=== PATIENT | male | born 1990 | race Caucasian/White ===

== ENCOUNTER 2018-03-13 21:25 | Emergency (ER) | payer MEDICAID ==
[2018-03-13 21:54] LABS: BILIRUBIN,URINE NEGATIVE (NEGATIVE); GLUCOSE, URINE (UA) NEGATIVE (NEGATIVE); KETONES,URINE (UA) NEGATIVE (NEGATIVE); LEUKOCYTE ESTERASE, URINE TRACE (NEGATIVE); NITRITE,URINE NEGATIVE (NEGATIVE); OCCULT BLOOD,URINE LARGE (NEGATIVE); PH,URINE 6.5 PH (5.0-7.5); PROTEIN,URINE NEGATIVE (NEGATIVE); UROBILINOGEN,URINE 0.2 (NORMAL) E.U./dL (NORMAL)
[2018-03-13 21:57] LABS: CLARITY,URINE HAZY (CLEAR)
--- NOTE | 2018-03-13 22:00 | ED Physician Documentation ---
PD HPI MALE - Stated complaint Stated Complaint: MALE - Chief complaint Chief Complaint: UTI - History obtained from History obtained from: Patient - History of Present Illness Timing - onset: Today Timing - duration: Days (1) Timing - details: Gradual onset Pain level max: 3 Pain level now: 3 Associated symptoms: Dysuria, Urinary frequency, Other (states small worm like objects in his urine today.) PD HPI MALE CONTRIB FACTORS: Not sexually active, Other (no urethral insertions.). No: Exposed to STD Similar symptoms before: Has not had sx before Recently seen: Not recently seen Review of Systems Constitutional: denies: Fever, Chills Throat: denies: Sore throat Cardiac: denies: Chest pain / pressure Respiratory: denies: Cough GI: denies: Abdominal Pain, Vomiting, Diarrhea : reports: Dysuria, Frequency, Hesitancy Skin: denies: Rash Neurologic: denies: Focal weakness, Numbness, Headache PD PAST MEDICAL HISTORY - Past Medical History Past Medical History: No - Past Surgical History Past Surgical History: No - Present Medications Home Medications: Ambulatory Orders Medication Instructions Recorded Confirmed Cephalexin [Keflex] 500 mg PO Q6H #28 capsule 03/13/18 - Allergies Allergies/Adverse Reactions: Allergies Allergy/AdvReac Type Severity Reaction Status Date / Time shellfish derived Allergy Anaphylaxis Verified 03/13/18 21:37 tuberculin,PPD,multi-puncture AdvReac Rash Verified 03/13/18 21:37 - Living Situation Living Situation: reports: With family Living Arrangement: reports: At home - Social History Does the pt smoke?: No Does the pt have substance abuse?: No - Family History Family history: reports: Non contributory PD ED PE NORMAL - Vitals Vital signs reviewed: Yes - General General: Alert and oriented X 3, No acute distress - HEENT HEENT: Moist mucous membranes, Pharynx benign (tonsil stones present) - Neck Neck: Supple, no meningeal sign - Cardiac Cardiac: RRR, Strong equal pulses - Respiratory Respiratory: No respiratory distress, Clear bilaterally - Abdomen Abdomen: Soft, Non tender, Non distended - Male Male : Other (normal external exam.) - Back Back: No CVA TTP - Derm Derm: Warm and dry - Extremities Extremities: No edema - Neuro Neuro: Alert and oriented X 3 Results - Vitals Vitals: Vital Signs - 24 hr 03/13/18 03/13/18 21:31 22:25 Temperature 37.1 C 36.3 C L Heart Rate 92 87 Respiratory 18 19 Rate Blood Pressure 162/112 H 154/89 H O2 Saturation 100 99 Oxygen O2 Source Room air - Labs Labs: Laboratory Tests 03/13/18 21:45 Urine Color YELLOW Urine Clarity HAZY Urine pH 6.5 Ur Specific [place] <=1.005 Urine Protein NEGATIVE Urine Glucose (UA) NEGATIVE Urine Ketones NEGATIVE Urine Occult Blood LARGE H Urine Nitrite NEGATIVE Urine Bilirubin NEGATIVE Urine Urobilinogen 0.2 (NORMAL) Ur Leukocyte Esterase TRACE H Urine RBC 0-5 Urine WBC 0-3 Ur Squamous Epith Cells MOD Squamous H Urine Bacteria None Seen Ur Microscopic Review INDICATED Urine Culture Comments NOT INDICATED PD MEDICAL DECISION MAKING - ED course Complexity details: reviewed results, re-evaluated patient, considered differential, d/w patient ED course: Patient is a 27-year-old male who presents to the emergency department with symptoms of a UTI. He is not sexually active. Does have + leukocyte esterase, given his symptoms will place on antibiotics and see how he progresses. Appears to have small amounts of mucus in the urine grossly. We will have him follow-up with his doctor for further care. There do not appear to be any worms or parasites. Patient counseled regarding signs and symptoms for which I believe and urgent re-evaluation would be necessary. Patient with good understanding of and agreement to plan and is comfortable going home at this time This document was made in part using voice recognition software. While efforts are made to proofread this document, sound alike and grammatical errors may occur. - Sepsis Event Vital Signs: Vital Signs - 24 hr 03/13/18 03/13/18 21:31 22:25 Temperature 37.1 C 36.3 C L Heart Rate 92 87 Respiratory 18 19 Rate Blood Pressure 162/112 H 154/89 H O2 Saturation 100 99 Oxygen O2 Source Room air Departure - Departure Disposition: Home, Self Care Clinical Impression: UTI (urinary tract infection) Qualifiers: Urinary tract infection type: acute cystitis Hematuria presence: with hematuria Qualified Code(s): N30.01 - Acute cystitis with hematuria Condition: Good Instructions: ED UTI Cystitis Male Follow-Up: your,doctor in 1 week [Other] Prescriptions: Cephalexin [Keflex] 500 mg PO Q6H #28 capsule Comments: Return if you worsen. Take all antibiotics until gone. Discharge Date/Time: 03/13/18 22:26
[2018-03-13 22:02] LABS: BACTERIA,URINE None Seen /HPF (None Seen); RBC,URINE 0-5 /HPF (0-5); SQUAMOUS EPITHELIAL CELL,UR MOD Squamous (<= Few)
[2018-03-13] MEDS ORDERED: cephALEXin 250 MG CAPSULE PO STA (22:14)
[2018-03-13 22:26] VITALS: BP 154/89
== END 2018-03-13 22:26 | disposition home or self-care (01) ==
LOC: ED 21:25
DX: N30.01 Acute cystitis with hematuria (principal)
CPT/HCPCS: 81001; 99283; A9270; 81003; 87086; 87491; 87591

== ENCOUNTER 2018-03-21 19:49 | Emergency (ER) | payer MEDICAID ==
[2018-03-21 20:41] LABS: BILIRUBIN,URINE NEGATIVE (NEGATIVE); GLUCOSE, URINE (UA) NEGATIVE (NEGATIVE); KETONES,URINE (UA) NEGATIVE (NEGATIVE); LEUKOCYTE ESTERASE, URINE NEGATIVE (NEGATIVE); NITRITE,URINE NEGATIVE (NEGATIVE); OCCULT BLOOD,URINE NEGATIVE (NEGATIVE); PH,URINE 6.5 PH (5.0-7.5); PROTEIN,URINE NEGATIVE (NEGATIVE); UROBILINOGEN,URINE 0.2 (NORMAL) E.U./dL (NORMAL)
[2018-03-21 20:45] LABS: CLARITY,URINE CLEAR (CLEAR)
[2018-03-21] MEDS ORDERED: PHENAZOPYRIDINE 100 MG TABLET PO STA (23:50)
--- NOTE | 2018-03-21 23:50 | ED Physician Documentation ---
PD HPI FEMALE - Stated complaint Stated Complaint: MALE /W PX - Chief complaint Chief Complaint: Abd Pain - History obtained from History obtained from: Patient PD PAST MEDICAL HISTORY - Past Medical History Past Medical History: No - Past Surgical History Past Surgical History: No - Present Medications Home Medications: Ambulatory Orders Medication Instructions Recorded Confirmed Cephalexin [Keflex] 500 mg PO QID 03/21/18 03/21/18 Phenazopyridine HCl [Pyridium] 200 mg PO TID PRN #6 tablet 03/21/18 - Allergies Allergies/Adverse Reactions: Allergies Allergy/AdvReac Type Severity Reaction Status Date / Time shellfish derived Allergy Anaphylaxis Verified 03/21/18 20:06 tuberculin,PPD,multi-puncture AdvReac Rash Verified 03/21/18 20:06 - Social History Does the pt smoke?: No Smoking Status: Never smoker Does the pt drink ETOH?: No Does the pt have substance abuse?: No - Immunizations Immunizations are current?: Yes - POLST Patient has POLST: No Results - Vitals Vitals: Vital Signs - 24 hr 03/21/18 20:03 Temperature 37.2 C Heart Rate 105 H Respiratory 16 Rate Blood Pressure 143/91 H O2 Saturation 97 Oxygen O2 Source Room air - Labs Labs: Laboratory Tests 03/21/18 19:58 Urine Color YELLOW Urine Clarity CLEAR Urine pH 6.5 Ur Specific [place] <=1.005 Urine Protein NEGATIVE Urine Glucose (UA) NEGATIVE Urine Ketones NEGATIVE Urine Occult Blood NEGATIVE Urine Nitrite NEGATIVE Urine Bilirubin NEGATIVE Urine Urobilinogen 0.2 (NORMAL) Ur Leukocyte Esterase NEGATIVE Ur Microscopic Review NOT INDICATED Urine Culture Comments NOT INDICATED PD MEDICAL DECISION MAKING - Sepsis Event Vital Signs: Vital Signs - 24 hr 03/21/18 20:03 Temperature 37.2 C Heart Rate 105 H Respiratory 16 Rate Blood Pressure 143/91 H O2 Saturation 97 Oxygen O2 Source Room air Departure - Departure Disposition: 01 Home, Self Care Clinical Impression: Dysuria Condition: Good Instructions: ED Dysuria Uncertain Cause Follow-Up: primary,care provider [Other] Prescriptions: Phenazopyridine HCl [Pyridium] 200 mg PO TID PRN #6 tablet PRN Reason: dysuria Comments: Your diagnostic today were within normal limits. there were no abnormalities on your ultrasound or urinalysis. Your urine has been sent for cultures and other testing. You will be called if the tests come back positive. You may return to the emergency department at anytime for new, worsening and uncontrollable symptoms.
--- NOTE | 2018-03-21 23:56 | ED Physician Documentation ---
PD HPI MALE - Stated complaint Stated Complaint: MALE /W PX - Chief complaint Chief Complaint: Abd Pain - History obtained from History obtained from: Patient - History of Present Illness Timing - onset: How many weeks ago (2) Timing - details: Gradual onset, Still present Associated symptoms: Dysuria PD HPI MALE CONTRIB FACTORS: Not sexually active Similar symptoms before: Work up / diagnostics, Treatment Recently seen: Emergency Dept - Additional information Additional information: Patient is a 27 year old male who is presenting to the emergency department for dysuria. Patient's symptoms have been going on for the last two weeks or so. patient did a course of antibiotics but his symptoms have persisted. Patient states that he has some stringy discharge at times when he urinates. Patient states that he as not been sexually active for about 4 years. Patient denies any type of other instrumentation. Review of Systems Ten Systems: 10 systems reviewed and negative : reports: Dysuria, Discharge PD PAST MEDICAL HISTORY - Past Medical History Past Medical History: No - Past Surgical History Past Surgical History: No - Present Medications Home Medications: Ambulatory Orders Medication Instructions Recorded Confirmed Cephalexin [Keflex] 500 mg PO QID 03/21/18 03/21/18 Phenazopyridine HCl [Pyridium] 200 mg PO TID PRN #6 tablet 03/21/18 - Allergies Allergies/Adverse Reactions: Allergies Allergy/AdvReac Type Severity Reaction Status Date / Time shellfish derived Allergy Anaphylaxis Verified 03/21/18 20:06 tuberculin,PPD,multi-puncture AdvReac Rash Verified 03/21/18 20:06 - Social History Does the pt smoke?: No Smoking Status: Never smoker Does the pt drink ETOH?: No Does the pt have substance abuse?: No - Immunizations Immunizations are current?: Yes - POLST Patient has POLST: No PD ED PE NORMAL - Vitals Vital signs reviewed: Yes - General General: Alert and oriented X 3, No acute distress - HEENT HEENT: Atraumatic - Cardiac Cardiac: RRR - Abdomen Abdomen: Soft - Male Male : Pt declined - Derm Derm: Normal color, Warm and dry - Extremities Extremities: No deformity - Neuro Neuro: Alert and oriented X 3 Eye Opening: Spontaneous Results - Vitals Vitals: Vital Signs - 24 hr 03/21/18 20:03 Temperature 37.2 C Heart Rate 105 H Respiratory 16 Rate Blood Pressure 143/91 H O2 Saturation 97 Oxygen O2 Source Room air - Labs Labs: Laboratory Tests 03/21/18 19:58 Urine Color YELLOW Urine Clarity CLEAR Urine pH 6.5 Ur Specific [place] <=1.005 Urine Protein NEGATIVE Urine Glucose (UA) NEGATIVE Urine Ketones NEGATIVE Urine Occult Blood NEGATIVE Urine Nitrite NEGATIVE Urine Bilirubin NEGATIVE Urine Urobilinogen 0.2 (NORMAL) Ur Leukocyte Esterase NEGATIVE Ur Microscopic Review NOT INDICATED Urine Culture Comments NOT INDICATED - Rads (name of study) scrotal ultrasound Radiology: Final report received (normal) PD MEDICAL DECISION MAKING - ED course Complexity details: reviewed old records, reviewed results, re-evaluated patient , considered differential, d/w patient ED course: Patient was seen and examined at bedside. urine was collected and showed no acute abnormalities. ultrasound was ordered and was within normal limits. Patient was treated with pyridium. Cultures were sent. Patient required no further inpatient work up at this time and was stable for discharge with outpatient follow up. - Sepsis Event Vital Signs: Vital Signs - 24 hr 03/21/18 20:03 Temperature 37.2 C Heart Rate 105 H Respiratory 16 Rate Blood Pressure 143/91 H O2 Saturation 97 Oxygen O2 Source Room air Departure - Departure Disposition: 01 Home, Self Care Clinical Impression: Dysuria Condition: Good Instructions: ED Dysuria Uncertain Cause Follow-Up: primary,care provider [Other] Prescriptions: Phenazopyridine HCl [Pyridium] 200 mg PO TID PRN #6 tablet PRN Reason: dysuria Comments: Your diagnostic today were within normal limits. there were no abnormalities on your ultrasound or urinalysis. Your urine has been sent for cultures and other testing. You will be called if the tests come back positive. You may return to the emergency department at anytime for new, worsening and uncontrollable symptoms.
[2018-03-21 23:59] VITALS: BP 138/85
--- NOTE | 2018-03-22 00:13 | Ultrasound Report ---
Procedure Date: 03/21/2018 Accession Number: [id number] / [id number] Procedure: US - Testicle CPT Code: FULL RESULT: EXAM: SCROTAL ULTRASOUND EXAM DATE: 03/21/2018 11:36 PM. CLINICAL HISTORY: Scrotal pain. COMPARISON: None. TECHNIQUE: Real-time scanning was performed with static images obtained. Both color-flow and Doppler spectral analysis were utilized. FINDINGS: Right: Testis: 4.3 x 2.7 x 2.8 cm. Normal size and echotexture. No mass, calcification, or abnormal blood flow. Epididymis: Normal size and echotexture. No solid-appearing mass or abnormal blood flow. Incidental 4 mm cyst. Hydrocele: None. Varicocele: None. Left: Testis: 4.6 x 2.3 x 3.3 cm. Normal size and echotexture. No mass, calcification, or abnormal blood flow. Epididymis: Normal size and echotexture. No solid-appearing mass or abnormal blood flow. Incidental 4 mm cyst. Hydrocele: None. Varicocele: None. Other: None. IMPRESSION: Negative scrotal ultrasound. RADIA
== END 2018-03-22 00:02 | disposition home or self-care (01) ==
LOC: ED 19:49
DX: R30.0 Dysuria (principal)
CPT/HCPCS: 76870; 81003; 87086; 87491; 87591; 99283; A9270; 81001

== ENCOUNTER 2018-10-07 13:48 | Emergency (ER) | payer MEDICAID ==
[2018-10-07] MEDS ORDERED: IBUPROFEN 800 MG TABLET PO STA (15:29)
--- NOTE | 2018-10-07 15:32 | ED Physician Documentation ---
PD HPI URI - Stated complaint Stated Complaint: CONGESTION,COUGH - Chief complaint Chief Complaint: General - History obtained from History obtained from: Patient - History of Present Illness Timing duration: Days (6) Timing details: Still present Associated symptoms: Nasal congestion, Sinus pain, Productive cough - Treatment prior to arrival Treatment prior to arrival: pseudofed. - Additional information Additional information: The patient is a 28-year-old male who presents with congestion and sinus pain that started about 6-8 days ago. He also has had productive cough. He had fever 2 days ago and yesterday, but not today. He has mild headache, particularly with coughing. He denies sore throat, shortness of breath, or abdominal symptoms. He took Sudafed yesterday which did help his symptoms. He presents now because his employer insisted that he have a medical evaluation before allowing him to be at work. Review of Systems Constitutional: reports: Fever (yesterday) Eyes: denies: Discharge Ears: denies: Ear pain Nose: reports: Congestion, Sinus pressure / pain Throat: denies: Sore throat Cardiac: denies: Chest pain / pressure Respiratory: reports: Cough. denies: Dyspnea GI: denies: Abdominal Pain, Nausea, Vomiting : denies: Dysuria Skin: denies: Rash Musculoskeletal: denies: Neck pain, Extremity pain Neurologic: denies: Focal weakness, Numbness, Headache PD PAST MEDICAL HISTORY - Past Surgical History Past Surgical History: No - Present Medications Home Medications: Ambulatory Orders Medication Instructions Recorded Confirmed Cephalexin [Keflex] 500 mg PO QID 03/21/18 03/21/18 Phenazopyridine HCl [Pyridium] 200 mg PO TID PRN #6 tablet 03/21/18 Benzonatate [Tessalon Perle] 100 - 200 mg PO TID PRN #30 capsule 10/07/18 - Allergies Allergies/Adverse Reactions: Allergies Allergy/AdvReac Type Severity Reaction Status Date / Time shellfish derived Allergy Anaphylaxis Verified 10/07/18 13:54 tuberculin,PPD,multi-puncture AdvReac Rash Verified 10/07/18 13:54 - Social History Does the pt smoke?: No Smoking Status: Never smoker Does the pt drink ETOH?: No Does the pt have substance abuse?: No - Immunizations Immunizations are current?: Yes - POLST Patient has POLST: No PD ED PE NORMAL - Vitals Vital signs reviewed: Yes (Borderline hypertension initially.) - General General: Alert and oriented X 3, Well developed/nourished, Other (Nasal congestion) - HEENT HEENT: Atraumatic, Ears normal, Pharynx benign - Neck Neck: Supple, no meningeal sign, No adenopathy, No JVD - Cardiac Cardiac: RRR, No murmur - Respiratory Respiratory: Clear bilaterally - Abdomen Abdomen: Soft, Non tender - Back Back: No CVA TTP - Derm Derm: No rash - Extremities Extremities: No edema, No calf tenderness / cord - Neuro Neuro: Alert and oriented X 3, No motor deficit, Normal speech Results - Vitals Vitals: Vital Signs - 24 hr 10/07/18 13:54 Temperature 36.7 C Heart Rate 100 Respiratory 16 Rate Blood Pressure 130/87 H O2 Saturation 100 Oxygen O2 Source Room air PD MEDICAL DECISION MAKING - ED course Complexity details: considered differential, d/w patient ED course: The patient's presentation is most consistent with viral upper respiratory infection. His clinical presentation does not suggest meningitis, pneumonitis, otitis media, or acute pharyngitis. Treatment in the emergency department included administration of Ibuprophen 800 mg orally. I discussed with him the expected course of illness, symptomatic treatment and outpatient follow-up, as well as potentially worrisome signs or symptoms that should prompt reevaluation in the emergency department. Departure - Departure Disposition: 01 Home, Self Care Clinical Impression: Viral URI with cough Condition: Stable Instructions: ED URI Viral Follow-Up: [facility] [Provider Group] Prescriptions: Benzonatate [Tessalon Perle] 100 - 200 mg PO TID PRN #30 capsule PRN Reason: Cough Comments: Your symptoms are most consistent with a viral upper respiratory infection. Antibiotics are not clinically indicated for this type of viral infection. Treatment should be geared toward managing symptoms: Drink plenty of fluids. Use Tylenol or ibuprofen as needed for fever or discomfort. You can use Tessalon as prescribed if needed for cough. Wash your hands frequently, and cover your cough. Follow up with your primary physician, or return to the emergency department, if not improving within 1-2 weeks. Return to the emergency department if you develop increasing difficulty breathing, or otherwise worsening symptoms. Forms: Activity restrictions
[2018-10-07 16:05] VITALS: BP 128/88
== END 2018-10-07 16:04 | disposition home or self-care (01) ==
LOC: ED 13:48
DX: J06.9 Acute upper respiratory infection, unspecified (principal); B97.89 Other viral agents as the cause of diseases classified elsewhere
CPT/HCPCS: 99283; A9270

== ENCOUNTER 2018-11-01 11:10 | Emergency (ER) | payer MEDICAID ==
--- NOTE | 2018-11-01 12:31 | ED Physician Documentation ---
History of Present Illness - Stated complaint Stated Complaint: FLU SX - Chief complaint Chief Complaint: Heent - History obtained from History obtained from: Patient - Additonal information Additional information: Patient is a previously healthy 28-year-old male presenting with multiple complaints including mild nasal congestion, rhinorrhea, sore throat, dry cough without shortness of breath for the past several days. Patient also reports fever at home and lower abdominal pain without urinary changes, vomiting, or nausea. Patient does report decreased bowel movements, but no other concerns re lated to stool. Patient has been trying DayQuil at home without much relief. Patient does have history of strep throat and states sore throat is similar feeling to prior episodes. Patient was seen about 1 month ago here with likely viral URI. Patient reports that he had resolve those previous symptoms and unfortunately started the symptoms several days ago. No other particular improving or worsening factors noted. Review of Systems Constitutional: reports: Fever Nose: reports: Rhinorrhea / runny nose, Congestion PD PAST MEDICAL HISTORY - Past Surgical History Past Surgical History: No - Present Medications Home Medications: Ambulatory Orders Medication Instructions Recorded Confirmed Penicillin V Potassium 500 mg PO BID 10 Days #20 tablet 11/01/18 - Allergies Allergies/Adverse Reactions: Allergies Allergy/AdvReac Type Severity Reaction Status Date / Time shellfish derived Allergy Anaphylaxis Verified 11/01/18 11:22 tuberculin,PPD,multi-puncture AdvReac Rash Verified 11/01/18 11:22 - Social History Does the pt smoke?: No Smoking Status: Never smoker Does the pt drink ETOH?: No Does the pt have substance abuse?: No - Immunizations Immunizations are current?: Yes - POLST Patient has POLST: No PD ED PE NORMAL - General General: Alert and oriented X 3, No acute distress, Well developed/nourished - HEENT HEENT: Atraumatic, Moist mucous membranes. No: Pharynx benign (Mild erythema and swelling throughout without uvulitis, uvular deviation, or peritonsillar abscess. Mild cobblestoning effect also present. No trismus. Nasal congestionEvident in voice. No rhinorrhea.) - Neck Neck: Supple, no meningeal sign - Cardiac Cardiac: RRR, No murmur - Respiratory Respiratory: No respiratory distress, Clear bilaterally, Other (Dry cough present) - Abdomen Abdomen: Normal bowel sounds, Soft, Non tender, Non distended - Derm Derm: Normal color, Warm and dry, No rash - Extremities Extremities: No deformity - Neuro Neuro: Alert and oriented X 3, No motor deficit, No sensory deficit - Psych Psych: Normal mood, Normal affect Results - Vitals Vitals: Vital Signs - 24 hr 11/01/18 11:19 Temperature 36.3 C L Heart Rate 109 H Respiratory 14 Rate Blood Pressure 139/102 H O2 Saturation 96 Oxygen O2 Source Room air PD MEDICAL DECISION MAKING - ED course Complexity details: reviewed old records, considered differential, d/w patient ED course: Patient was seen here just less than 1 month ago with similar symptoms. At that time, it appeared to likely be a viral issue. It is unclear today if patient is experiencing a viral syndrome or acute bacterial infection. I do not find evidence of obvious tonsillitis, pharyngitis, peritonsillar abscess, but there is significant pain per patient report and mild erythema with swelling of the pharyngeal area.Have lower suspicion for pneumonia given benign pulmonary exam. Patient did complain of mild GI symptoms which are resolving and do not feel he is experiencing an acute intra-abdominal infection that will require further workup or treatment, but could likely be due to general viral syndrome or sequel ae of possible strep throat. Discussed use of medications, supportive cares, return precautions and appropriate follow-up. Patient voiced understanding and is otherwise safe to discharge home. Departure - Departure Disposition: 01 Home, Self Care Clinical Impression: Pharyngitis Qualifiers: Pharyngitis/tonsillitis etiology: unspecified etiology Qualified Code(s): J02.9 - Acute pharyngitis, unspecified Condition: Good Instructions: ED Strep Pharyngitis Poss Follow-Up: your,doctor [Other] - Within 3 Days Prescriptions: Penicillin V Potassium 500 mg PO BID 10 Days #20 tablet Comments: It is difficult to ascertain if your symptoms are related to a virus or bacteria. However, given your history of strep throat and findings on today's exam, feel appropriate to prescribe antibiotic to target potential strep throat. Also recommend other supportive care such as hydration, rest, [id number] medications and appropriate dosing, which include ibuprofen, Tylenol, DayQuil, NyQuil, etc. Please follow-up with primary care physician in the next 2-3 days and return to ED sooner if expands worsening symptoms or other concerns. Of note, recommend taking antibiotic and other medications with food to avoid upset stomach. Forms: Activity restrictions
[2018-11-01 12:58] VITALS: BP 130/92
== END 2018-11-01 12:57 | disposition home or self-care (01) ==
LOC: ED 11:10
DX: J02.9 Acute pharyngitis, unspecified (principal)
CPT/HCPCS: 99283

== ENCOUNTER 2018-11-05 09:46 | Emergency (ER) | payer MEDICAID ==
[2018-11-05 09:53] VITALS: BP 148/91
[2018-11-05] MEDS ORDERED: CETIRIZINE 10 MG TABLET PO STA (10:24)
[2018-11-05] MEDS ORDERED: DEXAMETHASONE 10 MG/ML VIAL PO STA (10:24)
[2018-11-05] MEDS ORDERED: CHERRY SYRUP 10 ML UDC PO ONE (10:24)
[2018-11-05] MEDS ORDERED: BENZONATATE 100 MG CAPSULE PO STA (10:24)
--- NOTE | 2018-11-05 10:27 | ED Physician Documentation ---
PD HPI URI - Stated complaint Stated Complaint: FLU LIKE SX - Chief complaint Chief Complaint: Heent - History obtained from History obtained from: Patient - History of Present Illness Timing - onset: How many weeks ago (1) Timing duration: Weeks (1) Timing details: Abrupt onset, Still present Associated symptoms: Fever, Rhinorrhea, Sore throat, Productive cough, Other (nosebleed last night and again this morning. Feeling general malaise. Also having poor sleep due to cough. No vomiting nor diarrhea.) Contributing factors: No: Immunocompromised, COPD / asthma Improves by: No: Medication (not much improved with the PCN the past 3 days) Recently seen: Emergency Dept (4 days ago with Rx for PCN for presumed bacterial pharyngitis.) Review of Systems Constitutional: reports: Chills, Myalgias Nose: reports: Congestion, Epistaxis (last night and again this morning, with nose blowing.) Throat: reports: Sore throat Cardiac: denies: Chest pain / pressure Respiratory: reports: Dyspnea, Cough. denies: Wheezing GI: reports: Nausea. denies: Vomiting, Diarrhea PD PAST MEDICAL HISTORY - Past Medical History Cardiovascular: None Respiratory: None Neuro: None Endocrine/Autoimmune: Other Other Past Medical History: Stroke, hypoglycemia. - Past Surgical History Past Surgical History: No - Present Medications Home Medications: Ambulatory Orders Medication Instructions Recorded Confirmed Penicillin V Potassium 500 mg PO BID 10 Days #20 tablet 11/01/18 11/05/18 Benzonatate [Tessalon Perle] 100 mg PO TID PRN #25 capsule 11/05/18 Dexamethasone [Decadron] 4 mg PO DAILY #5 tablet 11/05/18 guaiFENesin/CODEINE [Robitussin AC] 10 ml PO Q6H PRN #240 ml 11/05/18 - Allergies Allergies/Adverse Reactions: Allergies Allergy/AdvReac Type Severity Reaction Status Date / Time shellfish derived Allergy Anaphylaxis Verified 11/05/18 09:53 tuberculin,PPD,multi-puncture AdvReac Rash Verified 11/05/18 09:53 - Social History Does the pt smoke?: No Smoking Status: Never smoker Does the pt drink ETOH?: No Does the pt have substance abuse?: No - Immunizations Immunizations are current?: Yes - POLST Patient has POLST: No PD ED PE NORMAL - Vitals Vital signs reviewed: Yes - General General: Alert and oriented X 3, Well developed/nourished, Other (some small clots left nostril. No active bleeding. ) - HEENT HEENT: Ears normal, Moist mucous membranes, Other (nasal mucosa with some inflammation and mild congestion whitish. No bleeding on right, but some small residual clots. ). No: Pharynx benign (mild redness without exudate) - Neck Neck: Supple, no meningeal sign, No adenopathy - Cardiac Cardiac: RRR, No murmur - Respiratory Respiratory: Clear bilaterally - Derm Derm: Normal color, Warm and dry, No rash - Neuro Neuro: Alert and oriented X 3, No motor deficit, Normal speech Results - Vitals Vitals: Vital Signs - 24 hr 11/05/18 09:50 Temperature 36.3 C L Heart Rate 112 H Respiratory 18 Rate Blood Pressure 148/91 H O2 Saturation 95 Oxygen O2 Source Room air PD MEDICAL DECISION MAKING - ED course Complexity details: reviewed old records, re-evaluated patient (foam packing placed in right nostril to keep from rebleeding. ), considered differential, d/w patient Departure - Departure Disposition: 01 Home, Self Care Clinical Impression: Right-sided nosebleed Upper respiratory infection Qualifiers: URI type: unspecified URI Qualified Code(s): J06.9 - Acute upper respiratory infection, unspecified Condition: Stable Record reviewed to determine appropriate education?: Yes Instructions: ED Upper Resp Infec Abx Tx, ED Nosebleed Prescriptions: Benzonatate [Tessalon Perle] 100 mg PO TID PRN #25 capsule PRN Reason: Cough Dexamethasone [Decadron] 4 mg PO DAILY #5 tablet guaiFENesin/CODEINE [Robitussin AC] 10 ml PO Q6H PRN #240 ml PRN Reason: Cough Comments: Keep the packing in the right nostril through the day today and remove it either this evening before bed or in the morning. This would try to keep the blood from pooling in the nostril and allow the raw area to heal. After that start using suggest some saline nose spray to cleanse the not nasal passage a few times a day. Regarding the general upper respiratory infection, finish out your current antibiotics. Add Decadron steroid for inflammation of the throat and airways. Add Tessalon if needed for cough and codeine cough medicine. Recheck if still not improving over the next few days. Forms: Activity restrictions Discharge Date/Time: 11/05/18 10:59
== END 2018-11-05 10:59 | disposition home or self-care (01) ==
LOC: ED 09:46
DX: R04.0 Epistaxis (principal); J06.9 Acute upper respiratory infection, unspecified; Z86.73 Personal history of transient ischemic attack (TIA), and cerebral infarction without residual deficits
CPT/HCPCS: 99283; A9270

== ENCOUNTER 2018-11-12 08:50 | Emergency (ER) | payer MEDICAID ==
--- NOTE | 2018-11-12 09:35 | ED Physician Documentation ---
PD HPI URI - Stated complaint Stated Complaint: THROAT PX,BILAT LEG PX - Chief complaint Chief Complaint: Ext Problem - History obtained from History obtained from: Patient - History of Present Illness Timing - onset: How many weeks ago (4) Timing duration: Weeks (4) Timing details: Gradual onset, Still present Associated symptoms: Fever, Nasal congestion, Rhinorrhea, Sinus pain, Sore throat, Productive cough, Other (legs are hurting.) Contributing factors: Sick contact Improves by: Rest, Medication Worsened by: Activity Similar symptoms before: Diagnosis (URI viral) Recently seen: Emergency Dept - Additional information Additional information: 28-year-old male with a persistent cough for the past month has been into the emergency department 3 times previously he has been diagnosed with pharyngitis viral illness he has been on some Pen-Vee K which he did not feel helped. He did feel that the dexamethasone seem to help while he was taking it. He reports hard coughing paroxysms every morning and significant nasal congestion. He also is now having some pain to both of his legs. Review of Systems Constitutional: reports: Fever, Chills, Myalgias, Fatigue Eyes: denies: Decreased vision Ears: denies: Ear pain Nose: reports: Rhinorrhea / runny nose, Congestion, Epistaxis Throat: reports: Sore throat Cardiac: denies: Chest pain / pressure, Palpitations Respiratory: reports: Cough. denies: Dyspnea GI: reports: Vomiting PD PAST MEDICAL HISTORY - Past Medical History Cardiovascular: None Respiratory: None Neuro: None Endocrine/Autoimmune: Other - Past Surgical History Past Surgical History: No - Present Medications Home Medications: Ambulatory Orders Medication Instructions Recorded Confirmed RX: Penicillin V Potassium 500 mg PO BID 10 Days #20 tablet 11/01/18 11/05/18 Benzonatate [Tessalon Perle] 100 mg PO TID PRN #25 capsule 11/05/18 Dexamethasone [Decadron] 4 mg PO DAILY #5 tablet 11/05/18 guaiFENesin/CODEINE [Robitussin AC] 10 ml PO Q6H PRN #240 ml 11/05/18 Amox/Clav 875/125 [Augmentin] 1 each PO Q12H #20 tablet 11/12/18 - Allergies Allergies/Adverse Reactions: Allergies Allergy/AdvReac Type Severity Reaction Status Date / Time shellfish derived Allergy Anaphylaxis Verified 04/06/19 09:53 tuberculin,PPD,multi-puncture AdvReac Rash Verified 11/05/18 09:53 - Social History Does the pt smoke?: No Smoking Status: Never smoker Does the pt drink ETOH?: No Does the pt have substance abuse?: No - Immunizations Immunizations are current?: Yes - POLST Patient has POLST: No PD ED PE NORMAL - Vitals Vital signs reviewed: Yes (hypertensive ) - General General: Alert and oriented X 3, Well developed/nourished, Other (nasal congestion is obvious, a hoarse voice and frequent hard coughing. ) - HEENT HEENT: Atraumatic, PERRL, EOMI, Other (There is cerumen to both ear canals occluding them completely. There is 2+ swelling to both tonsils they are cryptic with exudate on the right. After removal of the cerumen impaction on the left there is evidence of inflamaiton to the TM with rounding of the umbo. The right TM is not visible after irrigation as the patient was unable to tolerate the irrigation. ) - Neck Neck: Supple, no meningeal sign, No bony TTP - Cardiac Cardiac: RRR, No murmur - Respiratory Respiratory: No respiratory distress, Clear bilaterally - Abdomen Abdomen: Soft, Non tender - Back Back: No CVA TTP, No spinal TTP - Derm Derm: Normal color, Warm and dry, No rash - Extremities Extremities: No deformity, No edema - Neuro Neuro: Alert and oriented X 3, perioperative assistant 2-12 intact, No motor deficit, No sensory deficit, Normal speech Eye Opening: Spontaneous Motor: Obeys Commands Verbal: Oriented GCS Score: 15 - Psych Psych: Normal mood, Normal affect Results - Vitals Vitals: Vital Signs - 24 hr 11/12/18 11/12/18 09:06 10:07 Temperature 36.6 C Heart Rate 86 86 Respiratory 18 16 Rate Blood Pressure 136/95 H 128/78 O2 Saturation 96 99 Oxygen O2 Source Room air Procedures - General procedure General procedure: Bilateral cerumen impaction: With use of hydrogen peroxide both canals were instilled and after period of waiting the canals were irrigated. The left canal irrigated easily with a complete wax cast exuding. The right canal did not irrigate well and caused significant pain to the patient. This was likely due to wax adhered to the side that was removed and there is a slight area of bleeding. PD MEDICAL DECISION MAKING - ED course Complexity details: considered differential, d/w patient ED course: 28-year-old male with a persistent hard morning cough has otitis on exam and he has bilateral cerumen impaction which was removed on the left we were unsuccessful on the right secondary to intolerance.Here in the emergency department the patient is administered dexamethasone 10 mg orally we will place him on some Augmentin. Through this entire course he has been on Pen-Vee K once without improvement. Departure - Departure Disposition: 01 Home, Self Care Clinical Impression: Otitis media Condition: Stable Instructions: ED Otitis Media Acute Adult Follow-Up: [facility] [Provider Group] Prescriptions: Amox/Clav 875/125 [Augmentin] 1 each PO Q12H #20 tablet Forms: Activity restrictions Discharge Date/Time: 11/12/18 10:07
[2018-11-12] MEDS ORDERED: DEXAMETHASONE 10 MG/ML VIAL PO STA (09:55)
[2018-11-12] MEDS ORDERED: CHERRY SYRUP 10 ML UDC PO ONE (09:55)
[2018-11-12 10:08] VITALS: BP 128/78
== END 2018-11-12 10:07 | disposition home or self-care (01) ==
LOC: ED 08:50
DX: H66.93 Otitis media, unspecified, bilateral (principal); H61.23 Impacted cerumen, bilateral
CPT/HCPCS: 69210; 99282; 99283; A9270

== ENCOUNTER 2018-11-17 22:02 | Emergency (ER) | payer MEDICAID ==
--- NOTE | 2018-11-17 22:49 | ED Physician Documentation ---
PD HPI URI - Stated complaint Stated Complaint: BILAT EAR PX/COUGH - Chief complaint Chief Complaint: Heent - History obtained from History obtained from: Patient - History of Present Illness Timing - onset: How many weeks ago (few weeks of ear pain intermittently. Rx with PCN for possible strep and then seen again and Rx Augmentin. Still not feeling improved.) Timing details: Waxing and waning (somewhat better with abx, but felt the steroid dose helped more (correlated in time).) Associated symptoms: Sinus pain, Sore throat, Productive cough, Dyspnea. No: Fever, Swollen nodes, Hemoptysis Contributing factors: No: Sick contact Similar symptoms before: Has not had sx before Recently seen: Emergency Dept Review of Systems Constitutional: denies: Fever, Chills Ears: denies: Ear pain, Drainage/discharge Nose: reports: Sinus pressure / pain Throat: reports: Sore throat Respiratory: reports: Cough, Wheezing GI: denies: Nausea, Vomiting, Diarrhea Skin: denies: Rash PD PAST MEDICAL HISTORY - Past Medical History Cardiovascular: None Respiratory: None Neuro: None Endocrine/Autoimmune: Other - Past Surgical History Past Surgical History: No - Present Medications Home Medications: Ambulatory Orders Medication Instructions Recorded Confirmed Benzonatate [Tessalon Perle] 100 mg PO TID PRN #25 capsule 11/05/18 guaiFENesin/CODEINE [Robitussin AC] 10 ml PO Q6H PRN #240 ml 11/05/18 Amox/Clav 875/125 [Augmentin] 1 each PO Q12H #20 tablet 11/12/18 Albuterol Sulf [Ventolin Hfa 1 - 2 puffs INH Q4HR PRN #1 inhaler 11/17/18 Inhaler] Benzonatate [Tessalon Perle] 100 - 200 mg PO TID PRN #30 capsule 11/17/18 Dexamethasone [Decadron] 4 mg PO DAILY #7 tablet 11/17/18 Doxycycline Hyclate 100 mg PO BID #20 capsule 11/17/18 Hydrocodone/Acetaminophen [[place] 1 each PO Q6H PRN #15 tablet 11/17/18 5-325 Tablet] - Allergies Allergies/Adverse Reactions: Allergies Allergy/AdvReac Type Severity Reaction Status Date / Time shellfish derived Allergy Anaphylaxis Verified 11/17/18 22:08 tuberculin,PPD,multi-puncture AdvReac Rash Verified 11/17/18 22:08 - Social History Does the pt smoke?: No Smoking Status: Never smoker Does the pt drink ETOH?: No Does the pt have substance abuse?: No - Immunizations Immunizations are current?: Yes - POLST Patient has POLST: No PD ED PE NORMAL - Vitals Vital signs reviewed: Yes - General General: Alert and oriented X 3, Well developed/nourished, Other (appears uncomfortable) - HEENT HEENT: Pharynx benign. No: Ears normal (both ears with some redness and fluid but not appears true OM. ) - Neck Neck: Supple, no meningeal sign, Other (mild anterior adenopathy. ) - Cardiac Cardiac: RRR (tachycardic initially, while in pain and anxious. ), No murmur - Respiratory Respiratory: Clear bilaterally - Derm Derm: Normal color, Warm and dry - Neuro Neuro: Alert and oriented X 3, No motor deficit, Normal speech Results - Vitals Vitals: Oxygen O2 Source Room air PD MEDICAL DECISION MAKING - ED course Complexity details: reviewed old records, considered differential (had been URI but with cough mainly and so will change abx, as not improved with PCN/then Augmentin. ), d/w patient Departure - Departure Disposition: 01 Home, Self Care Clinical Impression: Cough Upper respiratory infection Qualifiers: URI type: unspecified URI Qualified Code(s): J06.9 - Acute upper respiratory infection, unspecified Condition: Stable Record reviewed to determine appropriate education?: Yes Instructions: ED Upper Resp Infec Abx Tx Prescriptions: Albuterol Sulf [Ventolin Hfa Inhaler] 1 - 2 puffs INH Q4HR PRN #1 inhaler PRN Reason: Shortness Of Air/Wheezing Benzonatate [Tessalon Perle] 100 - 200 mg PO TID PRN #30 capsule PRN Reason: Cough Dexamethasone [Decadron] 4 mg PO DAILY #7 tablet Doxycycline Hyclate 100 mg PO BID #20 capsule Hydrocodone/Acetaminophen [[place] 5-325 Tablet] 1 each PO Q6H PRN #15 tablet PRN Reason: Pain Comments: I would stop the current antibiotic (Amoxicillin /clavulanic acid). Changed to doxycycline twice daily for 7-10 days. Add Tessalon if needed for cough. Decadron steroid daily for 7 more days. Use albuterol inhaler 2 puffs 4 times a day to help improve breathing and less cough. Use it extra times as needed for wheezing or tightness. Add hydrocodone as needed for pain and cough. Recheck if not improving over the next few days. Discharge Date/Time: 11/18/18 00:05
[2018-11-17] MEDS ORDERED: ALBUTEROL NEB 2.5 MG/3 ML INH STA (23:06)
[2018-11-17] MEDS ORDERED: BENZONATATE 100 MG CAPSULE PO STA (23:07)
[2018-11-17] MEDS ORDERED: HYDROcod/ACET 5/325 Prepack 4 PO STA (23:07)
[2018-11-17] MEDS ORDERED: CHERRY SYRUP 10 ML UDC PO ONE (23:07)
[2018-11-17] MEDS ORDERED: DOXYCYCLINE 100 MG TABLET PO STA (23:07)
[2018-11-17] MEDS ORDERED: DEXAMETHASONE 10 MG/ML VIAL PO STA (23:07)
[2018-11-18 00:04] VITALS: BP 124/95
== END 2018-11-18 00:05 | disposition home or self-care (01) ==
LOC: ED 22:02
DX: J06.9 Acute upper respiratory infection, unspecified (principal)
CPT/HCPCS: 94640; 94664; 99283; A9270

== ENCOUNTER 2019-09-25 13:22 | Outpatient (CLI) | payer MEDICAID ==
--- NOTE | 2019-09-26 14:11 | XRAY Report ---
Reason: ATYPICAL CHEST PAIN Procedure Date: 09/25/2019 Accession Number: [id number] / [id number] Procedure: XRN - Chest 2 View X-Ray CPT Code: 37602 Final Report FULL RESULT: EXAM: CHEST RADIOGRAPHY EXAM DATE: 09/25/2019 02:01 PM. CLINICAL HISTORY: ATYPICAL CHEST PAIN. COMPARISON: None. TECHNIQUE: 2 views. FINDINGS: Lungs/Pleura: No focal opacities evident. No pleural effusion. No pneumothorax. Normal volumes. Mediastinum: Heart and mediastinal contours are unremarkable. Other: None. IMPRESSION: Normal 2-view chest radiography. RADIA
== END 2019-09-25 13:23 | disposition home or self-care (01) ==
LOC: DI.N 13:22
PROVIDERS: ATTEND Physician Assistant Medical
DX: R07.89 Other chest pain (principal)
CPT/HCPCS: 71046

== ENCOUNTER 2020-01-06 11:54 | Outpatient (CLI) | payer MEDICAID ==
--- NOTE | 2020-01-07 09:56 | XRAY Report ---
Reason: PAIN IN LEFT SHOULDER ICD: M25-512 Procedure Date: 01/06/2020 Accession Number: [id number] / [id number] Procedure: XR - Shoulder 3 View LT CPT Code: Final Report FULL RESULT: PROCEDURE: Shoulder 3 View LT INDICATIONS: PAIN IN LEFT SHOULDER ICD: M25-512 TECHNIQUE: 3 views of the shoulder were acquired. COMPARISON: CXR 09/25/2019 FINDINGS: Bones: No fractures or dislocations. No suspicious bony lesions. Visualized ribs appear intact. Soft tissues: No suspicious soft tissue calcifications. IMPRESSION: No fracture or dislocation. Reviewed by: Yaya Grossman MD on 01/07/2020 9:55 AM PDT Approved by: Yaya Grossman MD on 01/07/2020 9:55 AM PDT Station ID: [id number]
--- NOTE | 2020-01-07 10:01 | XRAY Report ---
Reason: PAIN IN LT SHOULDER M25.512 Procedure Date: 01/06/2020 Accession Number: [id number] / [id number] Procedure: XR - Spine Scoliosis Study 6+V CPT Code: Final Report FULL RESULT: PROCEDURE: Spine Scoliosis Study 6+V INDICATIONS: PAIN IN LT SHOULDER M25.512 Additional history: Evaluate for scoliosis. TECHNIQUE: Frontal and lateral standing views of the spine acquired. COMPARISON: None. FINDINGS: No significant scoliosis. Minimal dextrocurvature of the midthoracic spine measuring less than 6 degrees. No vertebral body compression fractures. No fracture No pars defect identified. 5 lumbar type vertebral bodies. 12 ribs bilaterally. SI joints appear symmetric. Visualized portions of the lung are clear. Bowel gas pattern is unremarkable. IMPRESSION: No significant scoliosis. Reviewed by: Yaya Grossman MD on 01/07/2020 9:59 AM PDT Approved by: Yaya Grossman MD on 01/07/2020 9:59 AM PDT Station ID: [id number]
== END 2020-01-06 11:55 | disposition home or self-care (01) ==
LOC: DI 11:54
PROVIDERS: ATTEND Nurse Practitioner
DX: M25.512 Pain in left shoulder (principal)
CPT/HCPCS: 72084

== ENCOUNTER 2020-02-08 10:26 | Outpatient (CLI) | payer MEDICAID | END 2020-02-08 10:27 | disposition home or self-care (01) | LOC: DI 10:26 | PROVIDERS: ATTEND Nurse Practitioner | DX: R07.89 Other chest pain (principal) | CPT/HCPCS: 93306 ==

== ENCOUNTER 2020-02-08 11:04 | Outpatient (CLI) | payer MEDICAID | END 2020-02-08 11:05 | disposition home or self-care (01) | LOC: DI 11:04 | PROVIDERS: ATTEND Nurse Practitioner | DX: M25.512 Pain in left shoulder (principal); M41.80 Other forms of scoliosis, site unspecified; Z53.9 Procedure and treatment not carried out, unspecified reason ==

== ENCOUNTER 2020-03-17 01:28 | Emergency (ER) | payer MEDICAID ==
--- NOTE | 2020-03-17 01:42 | ED Physician Documentation ---
History of Present Illness - Stated complaint Stated Complaint: DIZZY - Chief complaint Chief Complaint: Neuro - History obtained from History obtained from: Patient - Additonal information Additional information: Patient's 29-year-old male presents with a chief complaint of anxiety. He has been on Wellbutrin for the last 2 weeks. He denies any homicidal or suicidal thoughts denies any auditory visual hallucinations denies any syncope or unilateral weakness or facial droop.Patient denies any alcohol or illicit drug use. Review of Systems Constitutional: reports: Reviewed and negative Eyes: reports: Reviewed and negative Ears: reports: Reviewed and negative Nose: reports: Reviewed and negative Throat: reports: Reviewed and negative Cardiac: reports: Reviewed and negative Respiratory: reports: Reviewed and negative GI: reports: Reviewed and negative : reports: Reviewed and negative Skin: reports: Reviewed and negative Musculoskeletal: reports: Reviewed and negative Neurologic: reports: Reviewed and negative Psychiatric: reports: Anxiety Endocrine: reports: Reviewed and negative Immunocompromised: reports: Reviewed and negative PD PAST MEDICAL HISTORY - Past Medical History Cardiovascular: None Respiratory: None Neuro: None Endocrine/Autoimmune: Other - Past Surgical History Past Surgical History: No - Present Medications Home Medications: Ambulatory Orders Medication Instructions Recorded Confirmed Benzonatate [Tessalon Perle] 100 mg PO TID PRN #25 capsule 11/05/18 guaiFENesin/CODEINE [Robitussin AC] 10 ml PO Q6H PRN #240 ml 11/05/18 Amox/Clav 875/125 [Augmentin] 1 each PO Q12H #20 tablet 11/12/18 Albuterol Sulf [Ventolin Hfa 1 - 2 puffs INH Q4HR PRN #1 inhaler 11/17/18 Inhaler] Benzonatate [Tessalon Perle] 100 - 200 mg PO TID PRN #30 capsule 11/17/18 Doxycycline Hyclate 100 mg PO BID #20 capsule 11/17/18 Hydrocodone/Acetaminophen [[place] 1 each PO Q6H PRN #15 tablet 11/17/18 5-325 Tablet] dexAMETHasone [Decadron] 4 mg PO DAILY #7 tablet 11/17/18 - Allergies Allergies/Adverse Reactions: Allergies Allergy/AdvReac Type Severity Reaction Status Date / Time shellfish derived Allergy Anaphylaxis Verified 11/17/18 22:08 tuberculin,PPD,multi-puncture AdvReac Rash Verified 11/17/18 22:08 - Social History Does the pt smoke?: No Smoking Status: Never smoker Does the pt drink ETOH?: No Does the pt have substance abuse?: No - Immunizations Immunizations are current?: Yes - POLST Patient has POLST: No PD ED PE NORMAL - Vitals Vital signs reviewed: Yes - General General: Alert and oriented X 3, No acute distress, Well developed/nourished - HEENT HEENT: PERRL, Moist mucous membranes - Neck Neck: Supple, no meningeal sign, No adenopathy, Thyroid normal, No JVD, No bruit - Cardiac Cardiac: RRR, No murmur, Strong equal pulses - Respiratory Respiratory: No respiratory distress, Clear bilaterally - Abdomen Abdomen: Normal bowel sounds, Soft, Non tender, Non distended, No organomegaly - Male Male : Deferred - Rectal Rectal: Deferred - Back Back: No CVA TTP, No spinal TTP - Derm Derm: Normal color, Warm and dry, No rash - Extremities Extremities: No deformity, No tenderness to palpate, Normal ROM s pain, No edema, No calf tenderness / cord - Neuro Neuro: Alert and oriented X 3, 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, No motor deficit, No sensory deficit, Normal speech - Psych Psych: Normal mood, Normal affect, Other (Mildly anxious but otherwise answers questions appropriately no auditory visual hallucinations no homicidal or suicidal thoughts.) Results - Vitals Vitals: Vital Signs - 24 hr 03/17/20 01:42 Temperature 36.7 C Heart Rate 94 Respiratory 14 Rate Blood Pressure 144/104 H O2 Saturation 100 Oxygen O2 Source Room air PD MEDICAL DECISION MAKING - ED course Complexity details: considered differential (anxiety) Departure - Departure Disposition: Home, Self Care Clinical Impression: Anxiety Condition: Stable Instructions: Anxiety Disorder Follow-Up: Ashley Ribera ARNP, [employer] [Primary Care Provider] - Tomorrow Comments: Follow-up with your primary care provider on Wednesday.
[2020-03-17 02:17] VITALS: BP 138/95
== END 2020-03-17 02:20 | disposition home or self-care (01) ==
LOC: ED 01:28
DX: F41.9 Anxiety disorder, unspecified (principal)
CPT/HCPCS: 99283; 99284

== ENCOUNTER 2020-08-01 12:23 | Outpatient (CLI) | payer MEDICAID | END 2020-08-01 23:59 | disposition home or self-care (01) | LOC: RT 12:23 | PROVIDERS: ATTEND Psychiatry & Neurology Psychiatry | DX: Z79.899 Other long term (current) drug therapy (principal) | CPT/HCPCS: 93005 ==

== ENCOUNTER 2021-01-08 08:00 | Outpatient (CLI) | payer MEDICAID ==
[2021-01-08 18:26] LABS: ALKALINE PHOSPHATASE 62 IU/L (42-121); ALT ALANINE AMINOTRANSFERASE 27 IU/L (10-60); AST ASPARTATE AMINOTRANSFERASE 20 IU/L (10-42); BILIRUBIN,TOTAL 0.4 mg/dL (0.2-1.0); TOTAL PROTEIN 7.7 g/dL (6.7-8.2)
[2021-01-08 18:34] LABS: BILIRUBIN,DIRECT < 0.1 mg/dL (0.1-0.5)
== END 2021-01-08 23:59 | disposition home or self-care (01) ==
LOC: LAB.WCP 08:00
PROVIDERS: ATTEND Psychiatry & Neurology Psychiatry
DX: Z79.899 Other long term (current) drug therapy (principal)
CPT/HCPCS: 36415; 80076; 80335; 81599